=== PATIENT | female | born 1970 | race Caucasian/White ===

== ENCOUNTER 2016-12-06 09:50 | Emergency (ER) | payer OTHER ==
[~2016-12-06] VITALS: Ht 160 cm; Wt 82.6 kg
[~2016-12-06 09:50] MED LIST: ANAPROX DS550 MG PO; ASPIRIN81 MG PO; ASTHMACORT INHALER; ATARAX25 MG PO; BACTRIM DS 8001 TA1 PO; CIPRO250 MG PO; CIPRO500 MG PO; CYCLOBENZAPRINE10 MG PO; DOLOBID500 MG PO; FLAGYL500 MG PO; IBU800 MG PO; IBUPROFEN200 MG PO; IMODIUM2 MG PO; LEVOFLOXACIN500 MG PO; MEDROL DOSEPAK4 MG PO; MOTRIN800 MG; NAPROSYN500 MG PO; NKHM; NORCO 10-325 T1 EACH PO; PEPCID20 MG PO; PREDNISONE50 MG PO; PROVENTIL0.09 MG/AC IH; PYRIDIUM200 M1 PO; ROBAXIN750 MG PO; TRAMADOL HCL50 MG PO; ULTRAM50 MG PO; VICODIN 5/500 505 MG PO; ZANTAC150 MG PO; ZITHROMAX Z PA250 MG PO; ZOFRAN ODT4 MG SL; ZOFRAN4 MG PO
[2016-12-06 10:38] LABS: BASO # 0.1 10*3/uL (0.0-0.1); BASO % 0.5 % (0.0-1.0); EOS # 0.1 10*3/uL (0.0-0.4); EOS % 1.4 % (1.0-4.0); HEMATOCRIT 40.9 % (37.0-47.0); HEMOGLOBIN 13.7 g/dl (12.0-16.0); LYMPH % 30.2 % (27.0-41.0); MEAN CELL VOLUME 83.3 fl (81.0-99.0); MEAN CORPUSCULAR HGB 27.9 pg (27.0-31.0); MEAN CORPUSCULAR HGB CONC 33.5 g/dl (33.0-37.0); MEAN PLATELET VOLUME 10.7 fl (9.6-12.3); MONO # 0.8 10*3/uL (0.1-1.0); MONO % 7.5 % (3.0-9.0); PLATELET COUNT AUTOMATED 278 10*3/uL (130-400); RED BLOOD COUNT 4.91 10*6/uL (4.10-5.10); RED CELL DISTRI WIDTH 14.2 % (0-14.5)
[2016-12-06 10:47] LABS: MAGNESIUM 1.9 mg/dL (1.5-2.1)
[2016-12-06 10:55] LABS: ALBUMIN 3.4 gm/dl (3.1-4.5); ALKALINE PHOSPHATASE 134 U/L (45-117); BILIRUBIN, TOTAL 0.5 mg/dl (0.2-1.0); BUN 10 mg/dl (7-24); CARBON DIOXIDE 23 mmol/L (21-32); CHLORIDE 109 mmol/L (98-107); EST GLOM FILT AFRICAN AMERICAN > 60 ml/min; GLUCOSE 90 mg/dL (65-99); SGOT/AST 36 IU/L (3-35); SGPT/ALT 60 U/L (12-78); SODIUM 140 mmol/L (136-145); TOTAL PROTEIN 7.7 gm/dL (6.4-8.2)
[2016-12-06 10:57] LABS: BILIRUBIN NEGATIVE (NEGATIVE); BLOOD NEGATIVE (NEGATIVE); CLARITY SL CLOUDY (CLEAR); COLOR YELLOW (YELLOW); GLUCOSE NEGATIVE (NEGATIVE); KETONE NEGATIVE (NEGATIVE); LEUKO ESTERASE NEGATIVE (NEGATIVE); NITRITE NEGATIVE (NEGATIVE); PROTEIN TRACE (NEGATIVE); SPECIFIC GRAVITY 1.025 (1.005-1.030); UROBILINOGEN 0.2 E.U./dl (0.2-1.0)
[2016-12-06 11:13] LABS: BACTERIA TRACE; MUCOUS 1+; URINE REFLEX COMMENT NO (NO)
[2016-12-12] MEDS ORDERED: PRILOSEC20 M1 PO (12:30)
[2016-12-12] MEDS ORDERED: Lopressor25 MG PO (13:32)
== END 2016-12-06 14:10 | disposition left against medical advice (07) ==
LOC: ED 09:50
PROVIDERS: Emergency Medicine
DX: R11.2 Nausea with vomiting, unspecified (principal); R19.7 Diarrhea, unspecified; R50.9 Fever, unspecified; F17.200 Nicotine dependence, unspecified, uncomplicated; Z88.6 Allergy status to analgesic agent; Z88.8 Allergy status to other drugs, medicaments and biological substances; Z91.048 Other nonmedicinal substance allergy status

== ENCOUNTER 2018-02-05 16:59 | Emergency (ER) | payer OTHER ==
[~2018-02-05] VITALS: Ht 160 cm; Wt 91.6 kg
[~2018-02-05 16:59] MED LIST changes: +Lopressor25 MG PO; +PRILOSEC20 M1 PO
[2018-02-05 17:39] LABS: BILIRUBIN NEGATIVE (NEGATIVE); BLOOD NEGATIVE (NEGATIVE); CLARITY SL CLOUDY (CLEAR); COLOR YELLOW (YELLOW); GLUCOSE NEGATIVE (NEGATIVE); KETONE NEGATIVE (NEGATIVE); LEUKO ESTERASE NEGATIVE (NEGATIVE); NITRITE NEGATIVE (NEGATIVE); PH 6.5 (5.0-9.0); UROBILINOGEN 0.2 E.U./dl (0.2-1.0)
[2018-02-05 17:52] LABS: RBC 0-2 rbc/hpf (0-2)
[2018-02-05 17:53] LABS: BACTERIA 1+; MUCOUS TRACE
[2018-02-05] MEDS ORDERED: ROBAXIN500 M1 PO (18:16)
[2018-02-05] MEDS ORDERED: DELTASONE20 M1 PO (18:16)
== END 2018-02-05 18:19 | disposition home or self-care (01) ==
LOC: ED 16:59
PROVIDERS: Physician Assistant
DX: M47.896 Other spondylosis, lumbar region (principal); F17.200 Nicotine dependence, unspecified, uncomplicated; Z88.8 Allergy status to other drugs, medicaments and biological substances; Z88.6 Allergy status to analgesic agent; Z91.048 Other nonmedicinal substance allergy status; Z79.899 Other long term (current) drug therapy

== ENCOUNTER → 2018-02-13 | Outpatient (CLI) | payer OTHER ==
[~2018-02-13] MED LIST changes: +DELTASONE20 M1 PO; +ROBAXIN500 M1 PO
== END | disposition home or self-care (01) ==
LOC: RAD 10:43
DX: Z13.820 Encounter for screening for osteoporosis (principal); M85.9 Disorder of bone density and structure, unspecified; N95.9 Unspecified menopausal and perimenopausal disorder

== ENCOUNTER 2018-05-25 16:51 | Emergency (ER) | payer OTHER ==
[~2018-05-25] VITALS: Ht 160 cm; Wt 871.4 kg
[2018-05-25] MEDS ORDERED: Peridex 473 ML473 ML PO (16:59)
[2018-05-25] MEDS ORDERED: ZOFRAN4 MG PO (16:59)
[2018-05-25] MEDS ORDERED: NAPROSYN500 MG PO (16:59)
[2018-05-25] MEDS ORDERED: PENICILLIN VK500 MG PO (16:59)
== END 2018-05-25 17:14 | disposition home or self-care (01) ==
LOC: ED 16:51
DX: K02.9 Dental caries, unspecified (principal); R03.0 Elevated blood-pressure reading, without diagnosis of hypertension; Z88.8 Allergy status to other drugs, medicaments and biological substances; Z88.6 Allergy status to analgesic agent; Z79.899 Other long term (current) drug therapy

== ENCOUNTER 2018-09-02 07:30 | Emergency (ER) | payer SELFPAY ==
[~2018-09-02] VITALS: Wt 84.4 kg
[~2018-09-02 07:30] MED LIST changes: +PENICILLIN VK500 MG PO; +Peridex 473 ML473 ML PO
== END 2018-09-02 08:09 | disposition home or self-care (01) ==
LOC: ED 07:30
DX: J06.9 Acute upper respiratory infection, unspecified (principal); R05 Cough; R11.0 Nausea; R19.7 Diarrhea, unspecified; I10 Essential (primary) hypertension; E66.9 Obesity, unspecified; F17.200 Nicotine dependence, unspecified, uncomplicated; Z98.51 Tubal ligation status; Z79.899 Other long term (current) drug therapy; Z88.8 Allergy status to other drugs, medicaments and biological substances; Z88.6 Allergy status to analgesic agent; Z91.048 Other nonmedicinal substance allergy status

== ENCOUNTER 2019-01-19 07:18 | Emergency (ER) | payer OTHER ==
[~2019-01-19] VITALS: Ht 160 cm; Wt 90.7 kg
--- NOTE | ~2019-01-19 | EKG ---
[place], [place] ELECTROCARDIOGRAM REPORT NAME: ASIM JASMINE UNIT #: [id number] ROOM: DOCTOR: MELANIE DRAFT REPORT BIRTHDATE: [birth year] [facility] Test Date: 2019-01-19 Test Time: 08:27:13 Pat Name: ASIM JASMINE Department: Room: Gender: F Front Desk Clerk: : 1970 Requested By: CHRISTY RED Order Number: [id number] Reading MD: Curt Borrero MD Measurements Intervals [place] Rate: 87 P: 13 [place]: 155 QRS: 35 QRSD: 84 T: 57 QT: 403 QTc: 485 Interpretive Statements Sinus rhythm No previous ECG available for comparison Electronically Signed On 01-20-2019 15:42:46 PST by Curt Borrero MD CM:EKGRPT:ELECTROCARDIOGRAM REPORT [id number] CHRISTY NAVARRO DRAFT REPORT CHRISTY RED MD
[2019-01-19] MEDS ORDERED: ZESTORETIC 10-1 EACH PO (07:42)
[2019-01-19] MEDS ORDERED: ESCITALOPRAM OX10 MG PO (07:43)
[2019-01-19] MEDS ORDERED: BUSPAR5 MG PO (07:43)
[2019-01-19 07:51] LABS: BILIRUBIN NEGATIVE (NEGATIVE); BLOOD TRACE-LYSED (NEGATIVE); CLARITY CLEAR (CLEAR); COLOR YELLOW (YELLOW); GLUCOSE NEGATIVE (NEGATIVE); KETONE NEGATIVE (NEGATIVE); LEUKO ESTERASE NEGATIVE (NEGATIVE); NITRITE NEGATIVE (NEGATIVE); UROBILINOGEN 0.2 E.U./dl (0.2-1.0)
[2019-01-19 08:06] LABS: BACTERIA TRACE; MUCOUS 1+; RBC 0-2 rbc/hpf (0-2); WBC 0-2 wbc/hpf (0-5)
[2019-01-19 08:22] LABS: BASO % 0.4 % (0.0-1.0); EOS # 0.1 10*3/uL (0.0-0.4); HEMATOCRIT 45.1 % (37.0-47.0); LYMPH # 1.1 10*3/uL (1.3-4.4); LYMPH % 10.4 % (27.0-41.0); MEAN CELL VOLUME 86.6 fl (81.0-99.0); MEAN CORPUSCULAR HGB 28.8 pg (27.0-31.0); MEAN CORPUSCULAR HGB CONC 33.3 g/dl (33.0-37.0); MEAN PLATELET VOLUME 11.1 fl (9.6-12.3); MONO # 0.5 10*3/uL (0.1-1.0); MONO % 4.5 % (3.0-9.0); NEUT # 8.4 10*3/uL (2.3-7.9); NEUT % 83.2 % (47.0-73.0); PLATELET COUNT AUTOMATED 243 10*3/uL (130-400); RED BLOOD COUNT 5.21 10*6/uL (4.10-5.10); RED CELL DISTRI WIDTH 14.1 % (0-14.5); WHITE BLOOD COUNT 10.1 10*3/uL (4.8-10.8)
[2019-01-19 09:04] LABS: ALBUMIN 3.2 gm/dl (3.1-4.5); ALKALINE PHOSPHATASE 118 U/L (45-117); BUN 12 mg/dl (7-24); CHLORIDE 107 mmol/L (98-107); CREATININE 0.73 mg/dL (0.55-1.02); LIPASE 128 U/L (73-393); SGOT/AST 18 IU/L (3-35); SGPT/ALT 26 U/L (12-78); SODIUM 142 mmol/L (136-145); TOTAL PROTEIN 7.4 gm/dL (6.4-8.2)
[2019-01-19] MEDS ORDERED: REGLAN10 M1 PO (09:04)
[2019-01-19 09:13] LABS: TROPONIN I < 0.015 ng/ml (<0.045)
[2019-04-28] MEDS ORDERED: MEDROL DOSEPAK4 MG PO (12:00)
[2019-04-28] MEDS ORDERED: ROBAXIN500 M1 PO (12:00)
== END 2019-01-19 09:45 | disposition home or self-care (01) ==
LOC: ED 07:18
PROVIDERS: Emergency Medicine
DX: R11.2 Nausea with vomiting, unspecified (principal); R19.7 Diarrhea, unspecified; R10.9 Unspecified abdominal pain; R06.02 Shortness of breath; E66.9 Obesity, unspecified; F17.200 Nicotine dependence, unspecified, uncomplicated; Z88.8 Allergy status to other drugs, medicaments and biological substances; Z88.6 Allergy status to analgesic agent; Z79.899 Other long term (current) drug therapy

== ENCOUNTER 2019-05-26 09:02 | Emergency (ER) | payer OTHER ==
[~2019-05-26] VITALS: Wt 93.0 kg
[~2019-05-26 09:02] MED LIST changes: +BUSPAR5 MG PO; +ESCITALOPRAM OX10 MG PO; +REGLAN10 M1 PO; +ZESTORETIC 10-1 EACH PO
[2019-05-26] MEDS ORDERED: PREDNISONE50 MG PO (09:37)
[2019-05-26] MEDS ORDERED: NAPROSYN500 MG PO (09:37)
[2019-05-26] MEDS ORDERED: CYCLOBENZAPRINE10 MG PO (09:37)
== END 2019-05-26 09:39 | disposition home or self-care (01) ==
LOC: ED 09:02
DX: M54.5 Low back pain (principal); R20.2 Paresthesia of skin; R20.0 Anesthesia of skin; I10 Essential (primary) hypertension; Z88.8 Allergy status to other drugs, medicaments and biological substances; Z88.6 Allergy status to analgesic agent; Z79.899 Other long term (current) drug therapy; Z90.49 Acquired absence of other specified parts of digestive tract

== ENCOUNTER 2019-06-14 09:52 | Emergency (ER) | payer OTHER ==
[~2019-06-14] VITALS: Ht 160 cm; Wt 94.8 kg
[2019-06-14] MEDS ORDERED: CLINDAMYCIN HC300 MG PO (10:17)
[2019-06-14] MEDS ORDERED: NAPROSYN500 MG PO (10:17)
== END 2019-06-14 10:30 | disposition home or self-care (01) ==
LOC: ED 09:52
DX: K04.7 Periapical abscess without sinus (principal); Z79.899 Other long term (current) drug therapy; Z88.8 Allergy status to other drugs, medicaments and biological substances

== ENCOUNTER → 2019-09-01 | Outpatient (CLI) | payer BC ==
[~2019-09-01] MED LIST changes: +CLINDAMYCIN HC300 MG PO
== END | disposition home or self-care (01) ==
LOC: RAD 10:18
DX: M54.16 Radiculopathy, lumbar region (principal); I10 Essential (primary) hypertension; Z72.0 Tobacco use

== ENCOUNTER 2020-02-07 19:14 | Inpatient (IN) | payer BC ==
[~2020-02-07] VITALS: Ht 160 cm; Wt 95.0 kg
[2020-02-07] VITALS (7 sets, daily range): BP systolic 106–148; BP diastolic 65–90
[2020-02-07 19:41] LABS: HEMATOCRIT 42.2 % (37.0-47.0); MEAN CELL VOLUME 85.9 fl (81.0-99.0); MEAN CORPUSCULAR HGB 28.5 pg (27.0-31.0); MEAN CORPUSCULAR HGB CONC 33.2 g/dl (33.0-37.0); MEAN PLATELET VOLUME 11.2 fl (9.6-12.3); PLATELET COUNT AUTOMATED 279 10*3/uL (130-400); RED BLOOD COUNT 4.91 10*6/uL (4.10-5.10); RED CELL DISTRI WIDTH 14.1 % (0-14.5); WHITE BLOOD COUNT 14.1 10*3/uL (4.8-10.8)
[2020-02-07 19:52] LABS: ACT PARTIAL THROMBO TIME 26.9 SECONDS (20.0-32.1); INTERNATIONAL NORM RATIO 0.9 (2.0-3.5)
[2020-02-07 19:58] LABS: ALBUMIN 3.4 gm/dl (3.1-4.5); ALKALINE PHOSPHATASE 133 U/L (45-117); BUN 9 mg/dl (7-24); CHLORIDE 106 mmol/L (98-107); CREATININE 0.88 mg/dL (0.55-1.02); POTASSIUM 3.4 mmol/L (3.5-5.1); SGOT/AST 21 IU/L (3-35); SGPT/ALT 35 U/L (12-78); SODIUM 138 mmol/L (136-145); TOTAL PROTEIN 7.1 gm/dL (6.4-8.2); TROPONIN I 0.035 ng/ml (<0.045)
[2020-02-07 20:09] LABS: ATYPICAL LYMPHS 2 % (0-0); BASOPHILS 2 % (0-1); TOTAL CELLS COUNTED 100 #CELLS
[2020-02-07 20:10] LABS: PLATELET SUFFICIENCY NORMAL (NORMAL)
--- NOTE | 2020-02-07 20:41 | NUR ---
PT STATES SHE FEELS MORE CALM AND PAIN HAS DECREASED SOME. IN NO ACUTE DISTRESS.
--- NOTE | 2020-02-07 21:27 | NUR ---
PT GIVEN NITRO AT THIS TIME. BP IS 172/79
--- NOTE | 2020-02-07 22:42 | NUR ---
PT RESTING IN BED WITH EYES CLOSED. FAMILY AT BEDSIDE. IN NO ACUTE DISTRESS
--- NOTE | 2020-02-07 22:59 | NUR ---
PT NOW C/O JAW PAIN AND CHEST TIGHTNESS. DR ZAPATA NOTIFIED.
--- NOTE | 2020-02-08 00:05 | NUR ---
NOTIFIED DR CANTU ANSWERING SERVICE OF CONSULT AND REQUESTED A CALL BACK.
--- NOTE | 2020-02-08 00:25 | NUR ---
PATIENT WAS GIVEN ATIVAN IN ER. PATIENT IS ASLEEP AND UNABLE TO GIVE ME UPDATED MED REC. AT BEDSIDE AND STATED HE WOULD BRING IN A LIST OF MEDICATIONS IF SHE WAS UNABLE TO TELL US WHAT SHE TAKES AT HOME. NOTIFIED DR DAMON.
--- NOTE | 2020-02-08 00:25 | NUR ---
A 49, admitted to , under the services of DIANA Melissa DO with a diagnosis of CHEST PAIN. Chief complaint is CHEST PAIN. Patient arrived via stretcher from ER. Monitor applied. Initial assessment completed. Vital signs taken and recorded. DIANA MELISSA DO notified of admission to the unit. Orders received. See assessment for past medical history, medications and allergies. Patient and/or family oriented to unit. [address] visitation policy reviewed. Clothing/patient valuable form completed. DEMETRIA RODRIGUEZ
--- NOTE | 2020-02-08 01:40 | NUR ---
CRITICAL RECIEVED TROPONIN 0.762. DR DAMON NOTIFIED.
--- NOTE | 2020-02-08 01:42 | NUR ---
NO CALL BACK FROM DR HOFF. DR DAMON NOTIFIED. HE STATED LONG THE ANSWERING SERVICE WAS INFORMED THEN I DIDN'T HAVE TO CALL A SECOND TIME. HE STATED IT COULD WAIT UNTIL MORNING.
--- NOTE | 2020-02-08 06:16 | NUR ---
SPOKE WITH DR HOFF REGARDING CONSULT. HE STATED THE PATIENT WOULD BE ONE OF DR AVILA'S PATIENT'S AND TO KEEP HER NPO FOR NOW.
--- NOTE | 2020-02-08 06:21 | NUR ---
NOTIFIED DR DAMON OF CRITICAL TROPONIN OF 0.845. NO NEW ORDERS RECIEVED.
--- NOTE | 2020-02-08 06:25 | NUR ---
PATIENT'S APTT IS 55.1 IN THE THERAPEUTIC RANGE PER POLICY. NO CHANGES AT THIS TIME.
[2020-02-08 06:27] LABS: BASO # 0.1 10*3/uL (0.0-0.1); BASO % 0.5 % (0.0-1.0); EOS # 0.3 10*3/uL (0.0-0.4); EOS % 2.5 % (1.0-4.0); LYMPH # 3.9 10*3/uL (1.3-4.4); LYMPH % 39.7 % (27.0-41.0); MEAN CELL VOLUME 87.9 fl (81.0-99.0); MEAN CORPUSCULAR HGB 28.6 pg (27.0-31.0); MEAN CORPUSCULAR HGB CONC 32.5 g/dl (33.0-37.0); MEAN PLATELET VOLUME 11.9 fl (9.6-12.3); MONO # 0.7 10*3/uL (0.1-1.0); MONO % 6.8 % (3.0-9.0); NEUT % 50.1 % (47.0-73.0); PLATELET COUNT AUTOMATED 254 10*3/uL (130-400); RED BLOOD COUNT 4.55 10*6/uL (4.10-5.10); RED CELL DISTRI WIDTH 14.2 % (0-14.5); WHITE BLOOD COUNT 9.9 10*3/uL (4.8-10.8)
[2020-02-08 06:34] LABS: BUN 12 mg/dl (7-24); CHLORIDE 109 mmol/L (98-107); CHOLESTEROL 148 mg/dL (<200); CREATININE 0.69 mg/dL (0.55-1.02); HDL CHOLESTEROL 26 mg/dl (40-60); LDL CHOLESTEROL 89 mg/dL (9-159); PHOSPHOROUS 3.6 mg/dL (2.5-4.9); SODIUM 140 mmol/L (136-145); TRIGLYCERIDES 165 mg/dl (<150); VLDL CHOLESTEROL 33 mg/dL (6-40)
[2020-02-08 08:00] VITALS: BP 132/73
--- NOTE | 2020-02-08 09:00 | NUR ---
Cnc Maintenance Technician in to talk to patient. Patient states lives at home with . There are no steps in the home. Physician: eladio macias Pharmacy: [facility] health services: none Patient's level of ADLs: INDEPENDENT Patient has working utilities: all working DME: none Follow-up physician's appointment after d/c: will be made by hospitalist nurse director upon discharge Does patient want to access PORTAL?: no Discharge plan discussed with patient, and mom present, she states she lives at home with , she is independent in adls and ambulation, she states she will return home when medically stable but is now being transferred to [facility] for a heart cath, no other needs at this time. HARMEET NELSON
[2020-02-08] MEDS ORDERED: ASPIR LOW81 MG PO (11:09)
[2020-02-08] MEDS ORDERED: LOPRESSOR25 MG PO (11:09)
--- NOTE | 2020-02-08 11:45 | NUR ---
[facility] Discharge instructions reviewed with patient/family. Patient receptive and verbalizes understanding. Follow-up care arranged. Written instructions given to patient/family. ANNITA SHAVER
[2020-02-08 12:00] VITALS: BP 125/78
== END 2020-02-08 11:45 | disposition short-term general hospital (02) | DRG 282 ==
LOC: ED 19:14 → 4E 21:47 → EDHOLD 21:47 → 4E 22:56
PROVIDERS: Emergency Medicine; Student in an Organized Health Care Education/Training Program; ADMIT Family Medicine
DX: I21.4 Non-ST elevation (NSTEMI) myocardial infarction (principal); F41.9 Anxiety disorder, unspecified; F32.9 Major depressive disorder, single episode, unspecified; I10 Essential (primary) hypertension; E66.9 Obesity, unspecified; F17.210 Nicotine dependence, cigarettes, uncomplicated; R73.03 Prediabetes; D72.829 Elevated white blood cell count, unspecified; Z90.49 Acquired absence of other specified parts of digestive tract; Z80.6 Family history of leukemia; Z88.8 Allergy status to other drugs, medicaments and biological substances; Z79.899 Other long term (current) drug therapy; Z79.82 Long term (current) use of aspirin; Z71.6 Tobacco abuse counseling; Z68.37 Body mass index [BMI] 37.0-37.9, adult

== ENCOUNTER 2021-05-14 11:51 | Emergency (ER) | payer BC ==
[~2021-05-14] VITALS: Ht 160 cm; Wt 93.0 kg
[~2021-05-14 11:51] MED LIST changes: +ASPIR LOW81 MG PO; +LOPRESSOR25 MG PO
[2021-05-14 12:13] LABS: BASO % 0.4 % (0.0-1.0); EOS # 0.2 10*3/uL (0.0-0.4); EOS % 1.7 % (1.0-4.0); LYMPH # 3.1 10*3/uL (1.3-4.4); LYMPH % 27.9 % (27.0-41.0); MEAN CELL VOLUME 85.2 fl (81.0-99.0); MEAN CORPUSCULAR HGB 28.3 pg (27.0-31.0); MEAN CORPUSCULAR HGB CONC 33.2 g/dl (33.0-37.0); MEAN PLATELET VOLUME 11.5 fl (9.6-12.3); MONO # 0.7 10*3/uL (0.1-1.0); MONO % 6.2 % (3.0-9.0); PLATELET COUNT AUTOMATED 263 10*3/uL (130-400); RED BLOOD COUNT 4.81 10*6/uL (4.10-5.10); RED CELL DISTRI WIDTH 14.8 % (0-14.5); WHITE BLOOD COUNT 11.1 10*3/uL (4.8-10.8)
[2021-05-14 12:32] LABS: ALBUMIN 3.3 gm/dl (3.1-4.5); ALKALINE PHOSPHATASE 144 U/L (45-117); CHLORIDE 108 mmol/L (98-107); CREATININE 0.73 mg/dL (0.55-1.02); POTASSIUM 3.4 mmol/L (3.5-5.1); SGOT/AST 19 IU/L (3-35); SGPT/ALT 42 U/L (12-78); SODIUM 139 mmol/L (136-145); TOTAL PROTEIN 7.4 gm/dL (6.4-8.2)
[2021-05-14 12:34] LABS: BUN 10 mg/dl (7-24); TROPONIN I < 0.015 ng/ml (<0.045)
== END 2021-05-14 14:36 | disposition left against medical advice (07) ==
LOC: ED 11:51
PROVIDERS: Emergency Medicine
DX: R07.9 Chest pain, unspecified (principal); Z88.8 Allergy status to other drugs, medicaments and biological substances; Z79.899 Other long term (current) drug therapy; Z88.6 Allergy status to analgesic agent; Z90.49 Acquired absence of other specified parts of digestive tract; Z98.890 Other specified postprocedural states

== ENCOUNTER 2021-07-10 12:45 | Emergency (ER) | payer BC ==
[~2021-07-10] VITALS: Wt 95.3 kg
[2021-07-10 14:33] LABS: HEMATOCRIT 41.1 % (37.0-47.0); MEAN CORPUSCULAR HGB 27.8 pg (27.0-31.0); MEAN CORPUSCULAR HGB CONC 32.4 g/dl (33.0-37.0); MEAN PLATELET VOLUME 11.1 fl (9.6-12.3); PLATELET COUNT AUTOMATED 292 10*3/uL (130-400); RED BLOOD COUNT 4.78 10*6/uL (4.10-5.10); RED CELL DISTRI WIDTH 14.3 % (0-14.5); WHITE BLOOD COUNT 9.4 10*3/uL (4.8-10.8)
[2021-07-10 14:54] LABS: BILIRUBIN Negative (Negative); BLOOD Negative (Negative); CLARITY Clear (Clear); COLOR Yellow (Yellow); GLUCOSE Negative (Negative); KETONE Negative (Negative); LEUKO ESTERASE Negative (Negative); NITRITE Negative (Negative); SPECIFIC GRAVITY 1.015 (1.001-1.030)
[2021-07-10 14:55] LABS: ALBUMIN 3.1 gm/dl (3.1-4.5); ALKALINE PHOSPHATASE 136 U/L (45-117); BUN 11 mg/dl (7-24); CHLORIDE 105 mmol/L (98-107); CREATININE 0.62 mg/dL (0.55-1.02); LIPASE 98 U/L (73-393); POTASSIUM 4.1 mmol/L (3.5-5.1); SGOT/AST 19 IU/L (3-35); SGPT/ALT 33 U/L (12-78); SODIUM 138 mmol/L (136-145); TOTAL PROTEIN 7.2 gm/dL (6.4-8.2)
[2021-07-10 14:56] LABS: ATYPICAL LYMPHS 3 % (0-0); BASOPHILS 1 % (0-1); PLATELET SUFFICIENCY NORMAL (NORMAL); TOTAL CELLS COUNTED 100 #CELLS
[2021-07-10 14:57] LABS: TROPONIN I < 0.015 ng/ml (<0.045)
[2021-07-10 15:17] LABS: BACTERIA 2+; RBC 0-2 rbc/hpf (0-2); WBC 0-2 wbc/hpf (0-5)
[2021-07-10] MEDS ORDERED: ZOFRAN4 MG PO (18:08)
[2021-07-10] MEDS ORDERED: MECLIZINE HCL25 M2 PO (18:08)
== END 2021-07-10 18:12 | disposition home or self-care (01) ==
LOC: ED 12:45
PROVIDERS: Physician Assistant
DX: R11.2 Nausea with vomiting, unspecified (principal); Z20.822 Contact with and (suspected) exposure to COVID-19; R19.7 Diarrhea, unspecified; E86.9 Volume depletion, unspecified; F17.200 Nicotine dependence, unspecified, uncomplicated; Z88.8 Allergy status to other drugs, medicaments and biological substances; Z88.6 Allergy status to analgesic agent; Z79.899 Other long term (current) drug therapy

== ENCOUNTER 2022-03-15 18:45 | Emergency (ER) | payer SELFPAY ==
[~2022-03-15 18:45] MED LIST changes: +MECLIZINE HCL25 M2 PO
[2022-03-15] MEDS ORDERED: PENICILLIN VK500 MG PO (19:02)
[2022-03-16] MEDS ORDERED: CLEOCIN HCL150 MG PO (12:04)
[2022-03-16] MEDS ORDERED: KETOROLAC10 MG PO (12:04)
== END 2022-03-15 19:18 | disposition home or self-care (01) ==
LOC: ED 18:45
DX: K04.7 Periapical abscess without sinus (principal); K02.9 Dental caries, unspecified; Z98.51 Tubal ligation status; Z90.49 Acquired absence of other specified parts of digestive tract; Z79.899 Other long term (current) drug therapy; Z79.82 Long term (current) use of aspirin; Z88.8 Allergy status to other drugs, medicaments and biological substances; Z88.6 Allergy status to analgesic agent

== ENCOUNTER 2022-03-16 11:07 | Emergency (ER) | payer SELFPAY ==
[2022-03-16] MEDS ORDERED: KETOROLAC10 MG PO (12:04)
[2022-03-16] MEDS ORDERED: CLEOCIN HCL150 MG PO (12:04)
== END 2022-03-16 12:10 | disposition home or self-care (01) ==
LOC: ED 11:07
DX: K04.7 Periapical abscess without sinus (principal); K02.9 Dental caries, unspecified; F17.200 Nicotine dependence, unspecified, uncomplicated; Z98.890 Other specified postprocedural states; Z79.899 Other long term (current) drug therapy; Z79.82 Long term (current) use of aspirin; Z88.5 Allergy status to narcotic agent; Z88.6 Allergy status to analgesic agent

== ENCOUNTER 2022-10-22 10:09 | Emergency (ER) | payer SELFPAY ==
[~2022-10-22] VITALS: Wt 94.3 kg
[~2022-10-22 10:09] MED LIST changes: +CLEOCIN HCL150 MG PO; +KETOROLAC10 MG PO
[2022-10-22 10:46] LABS: BASO # 0.1 10*3/uL (0.0-0.1); BASO % 0.4 % (0.0-1.0); EOS # 0.2 10*3/uL (0.0-0.4); EOS % 1.9 % (1.0-4.0); HEMATOCRIT 39.8 % (37.0-47.0); LYMPH % 27.3 % (27.0-41.0); MEAN CELL VOLUME 83.3 fl (81.0-99.0); MEAN CORPUSCULAR HGB 28.7 pg (27.0-31.0); MEAN CORPUSCULAR HGB CONC 34.4 g/dl (33.0-37.0); MEAN PLATELET VOLUME 11.5 fl (9.6-12.3); MONO # 0.7 10*3/uL (0.1-1.0); MONO % 5.9 % (3.0-9.0); NEUT # 7.1 10*3/uL (2.3-7.9); NEUT % 64.1 % (47.0-73.0); PLATELET COUNT AUTOMATED 254 10*3/uL (130-400); RED BLOOD COUNT 4.78 10*6/uL (4.10-5.10); RED CELL DISTRI WIDTH 14.3 % (0-14.5); WHITE BLOOD COUNT 11.1 10*3/uL (4.8-10.8)
[2022-10-22 10:58] LABS: ACT PARTIAL THROMBO TIME 27.7 SECONDS (20.0-32.1)
[2022-10-22 11:02] LABS: ALKALINE PHOSPHATASE 129 U/L (45-117); BUN 10 mg/dl (7-24); CHLORIDE 106 mmol/L (98-107); CREATININE 0.65 mg/dL (0.55-1.02); LIPASE 101 U/L (73-393); POTASSIUM 3.6 mmol/L (3.5-5.1); SGPT/ALT 39 U/L (12-78); SODIUM 137 mmol/L (136-145); TOTAL PROTEIN 7.2 gm/dL (6.4-8.2)
== END 2022-10-22 14:15 | disposition left against medical advice (07) ==
LOC: ED 10:09
PROVIDERS: Emergency Medicine
DX: R07.89 Other chest pain (principal); R55 Syncope and collapse; Z79.899 Other long term (current) drug therapy; Z79.82 Long term (current) use of aspirin; Z88.8 Allergy status to other drugs, medicaments and biological substances; Z88.6 Allergy status to analgesic agent

== ENCOUNTER → 2022-12-10 | Outpatient (CLI) | payer BC ==
[2022-12-10 12:42] LABS: BASO # 0.1 10*3/uL (0.0-0.1); BASO % 0.5 % (0.0-1.0); EOS # 0.1 10*3/uL (0.0-0.4); EOS % 0.7 % (1.0-4.0); HEMATOCRIT 44.7 % (37.0-47.0); LYMPH # 1.7 10*3/uL (1.3-4.4); LYMPH % 17.9 % (27.0-41.0); MEAN CORPUSCULAR HGB 28.8 pg (27.0-31.0); MEAN CORPUSCULAR HGB CONC 33.6 g/dl (33.0-37.0); MEAN PLATELET VOLUME 11.7 fl (9.6-12.3); MONO # 0.3 10*3/uL (0.1-1.0); MONO % 3.4 % (3.0-9.0); NEUT # 7.3 10*3/uL (2.3-7.9); NEUT % 76.9 % (47.0-73.0); PLATELET COUNT AUTOMATED 270 10*3/uL (130-400); RED CELL DISTRI WIDTH 14.8 % (0-14.5); RETICULOCYTE % 1.79 % (0.50-2.50); WHITE BLOOD COUNT 9.5 10*3/uL (4.8-10.8)
[2022-12-10 12:43] LABS: BILIRUBIN Negative (Negative); BLOOD Negative (Negative); CLARITY Clear (Clear); COLOR Yellow (Yellow); GLUCOSE Negative (Negative); KETONE Negative (Negative); LEUKO ESTERASE Negative (Negative); NITRITE Negative (Negative); PH 5.5 (4.5-8.0); SPECIFIC GRAVITY 1.015 (1.001-1.030); UROBILINOGEN 0.2 E.U./dl (0.0-1.0)
[2022-12-10 13:02] LABS: ALKALINE PHOSPHATASE 125 U/L (46-116); BUN 9 mg/dl (9-23); CHLORIDE 105 mmol/L (98-107); CHOLESTEROL 152 mg/dL (<200); GAMMA GLUTAMYL TRANSPEPTIDASE 26 U/L (0-73); LDL CHOLESTEROL 90 mg/dL (9-159); POTASSIUM 4.2 mmol/L (3.4-5.1); SGPT/ALT 40 U/L (10-49); THYROID STIM HORMONE (HS) 0.828 uIU/ml (0.550-4.780); TOTAL PROTEIN 7.3 gm/dL (6.0-8.0); TRIGLYCERIDES 160 mg/dl (<150); URIC ACID 5.4 mg/dL (3.1-9.2)
[2022-12-10 13:18] LABS: VITAMIN D, 25-HYDROXY 20.3 ng/mL (30-100)
[2022-12-10 13:56] LABS: BACTERIA TRACE; MUCOUS TRACE
[2022-12-11 14:08] LABS: ANTI-DSDNA ANTIBODIES <1 IU/mL (0-9)
== END | disposition home or self-care (01) ==
LOC: LAB 11:48
PROVIDERS: ATTEND Family Medicine
DX: M47.814 Spondylosis without myelopathy or radiculopathy, thoracic region (principal); M47.816 Spondylosis without myelopathy or radiculopathy, lumbar region; M25.78 Osteophyte, vertebrae; E78.5 Hyperlipidemia, unspecified; E55.9 Vitamin D deficiency, unspecified; R79.89 Other specified abnormal findings of blood chemistry; R53.83 Other fatigue; R74.8 Abnormal levels of other serum enzymes

== ENCOUNTER 2023-05-03 15:38 | Emergency (ER) | payer BC ==
[~2023-05-03] VITALS: Ht 160 cm; Wt 97.5 kg
== END 2023-05-03 17:02 | disposition home or self-care (01) ==
LOC: ED 15:38
DX: S96.912A Strain of unspecified muscle and tendon at ankle and foot level, left foot, initial encounter (principal); F41.9 Anxiety disorder, unspecified; F32.A Depression, unspecified; I10 Essential (primary) hypertension; G43.909 Migraine, unspecified, not intractable, without status migrainosus; Z88.8 Allergy status to other drugs, medicaments and biological substances; Z88.6 Allergy status to analgesic agent; Z88.5 Allergy status to narcotic agent; Z90.49 Acquired absence of other specified parts of digestive tract; Z98.890 Other specified postprocedural states; F17.200 Nicotine dependence, unspecified, uncomplicated; X50.1XXA Overexertion from prolonged static or awkward postures, initial encounter; Y93.89 Activity, other specified; Y92.89 Other specified places as the place of occurrence of the external cause; Y99.8 Other external cause status

== ENCOUNTER → 2023-12-24 | Outpatient (CLI) | payer OTHER ==
[2023-12-24 10:50] LABS: BASO # 0.1 10*3/uL (0.0-0.1); BASO % 0.4 % (0.0-1.0); BILIRUBIN Negative (Negative); BLOOD Negative (Negative); CLARITY Clear (Clear); COLOR Yellow (Yellow); EOS # 0.2 10*3/uL (0.0-0.4); GLUCOSE Negative (Negative); HEMATOCRIT 43.3 % (37.0-47.0); KETONE Trace (Negative); LEUKO ESTERASE Negative (Negative); LYMPH # 3.6 10*3/uL (1.3-4.4); LYMPH % 31.5 % (27.0-41.0); MEAN CELL VOLUME 87.3 fl (81.0-99.0); MEAN CORPUSCULAR HGB 28.8 pg (27.0-31.0); MEAN PLATELET VOLUME 11.3 fl (9.6-12.3); MONO # 0.7 10*3/uL (0.1-1.0); MONO % 5.9 % (3.0-9.0); NEUT # 6.8 10*3/uL (2.3-7.9); NEUT % 59.8 % (47.0-73.0); NITRITE Negative (Negative); PLATELET COUNT AUTOMATED 262 10*3/uL (130-400); RED BLOOD COUNT 4.96 10*6/uL (4.10-5.10); RETICULOCYTE % 1.74 % (0.50-2.50); SPECIFIC GRAVITY >= 1.030 (1.001-1.030); WHITE BLOOD COUNT 11.4 10*3/uL (4.8-10.8)
[2023-12-24 11:55] LABS: CALCIUM OXALATE CRYSTALS Trace; MUCOUS TRACE; RBC 0-2 rbc/hpf (0-2); WBC 0-2 wbc/hpf (0-5)
[2023-12-24 12:01] LABS: ALKALINE PHOSPHATASE 121 U/L (46-116); BUN 13 mg/dl (9-23); CHLORIDE 111 mmol/L (98-107); CHOLESTEROL 125 mg/dL (<200); GAMMA GLUTAMYL TRANSPEPTIDASE 22 U/L (0-73); LDL CHOLESTEROL 77 mg/dL (9-159); POTASSIUM 4.1 mmol/L (3.4-5.1); SGPT/ALT 35 U/L (5-49); T3 UPTAKE 28.4 % (22.4-36.7); THYROXINE (T4) TOTAL 6.6 ug/dl (4.5-10.9); TOTAL PROTEIN 7.3 gm/dL (6.0-8.0); TRIGLYCERIDES 69 mg/dl (<150)
[2023-12-24 12:03] LABS: VITAMIN D, 25-HYDROXY 34.2 ng/mL (30-100)
== END | disposition home or self-care (01) ==
LOC: LAB 10:27
PROVIDERS: ATTEND Family Medicine
DX: E55.9 Vitamin D deficiency, unspecified (principal); R79.89 Other specified abnormal findings of blood chemistry; R74.8 Abnormal levels of other serum enzymes

== ENCOUNTER 2025-03-05 10:15 | Emergency (ER) | payer OTHER ==
[~2025-03-05] VITALS: Ht 160 cm; Wt 93.4 kg
[2025-03-05] MEDS ORDERED: Amoxicillin/Clavulanate Pota 875 MG TAB PO ONE (11:05)
[2025-03-05] MEDS ORDERED: AMOX-CLAV 875-1 EACH PO (11:09)
[2025-03-05] MEDS ORDERED: CIPROFLOXACIN H10 ML OPH (11:09)
== END 2025-03-05 11:41 | disposition home or self-care (01) ==
LOC: ED 10:15
DX: L03.213 Periorbital cellulitis (principal); H10.9 Unspecified conjunctivitis; I10 Essential (primary) hypertension; E78.5 Hyperlipidemia, unspecified; F32.A Depression, unspecified; F41.9 Anxiety disorder, unspecified; Z88.8 Allergy status to other drugs, medicaments and biological substances; Z88.6 Allergy status to analgesic agent; Z79.899 Other long term (current) drug therapy; Z79.82 Long term (current) use of aspirin; Z90.49 Acquired absence of other specified parts of digestive tract; Z98.890 Other specified postprocedural states; Z87.891 Personal history of nicotine dependence

== ENCOUNTER → 2025-05-11 | Outpatient (CLI) | payer OTHER ==
[~2025-05-11] MED LIST changes: +AMOX-CLAV 875-1 EACH PO; +CIPROFLOXACIN H10 ML OPH
== END | disposition home or self-care (01) ==
LOC: RAD 08:40
PROVIDERS: ATTEND Nurse Practitioner
DX: M19.071 Primary osteoarthritis, right ankle and foot (principal); M77.31 Calcaneal spur, right foot; M79.671 Pain in right foot

== ENCOUNTER 2025-09-26 07:03 | Observation (INO) | payer OTHER ==
[2025-09-26] VITALS (7 sets, daily range): BP systolic 136–161; BP diastolic 82–107
[~2025-09-26] VITALS: Ht 160 cm; Wt 92.3 kg
[2025-09-26] MEDS ORDERED: NITROGLYCERIN 1 IN PACKET T ONE (07:20)
[2025-09-26] MEDS ORDERED: ASPIRIN 325 MG ENTERIC COATED PO ONE (07:20)
[2025-09-26] MEDS ORDERED: Ondansetron Hydrochloride 4 MG/2 ML VIAL IV ONE ×2 (07:25→08:25)
[2025-09-26 07:34] LABS: BASO # 0.1 10*3/uL (0.0-0.1); BASO % 0.5 % (0.0-1.0); EOS # 0.2 10*3/uL (0.0-0.4); EOS % 1.5 % (1.0-4.0); MEAN CELL VOLUME 84.9 fl (81.0-99.0); MEAN CORPUSCULAR HGB 28.0 pg (27.0-31.0); MEAN PLATELET VOLUME 10.7 fl (9.6-12.3); MONO # 0.5 10*3/uL (0.1-1.0); MONO % 5.4 % (3.0-9.0); NEUT # 6.0 10*3/uL (2.3-7.9); NEUT % 60.7 % (47.0-73.0); NUCLEATED RED BLOOD CELL 0.0 % (0.0-0.0); NUCLEATED RED BLOOD CELL 0.0 10*3/uL (0.0-0.0); PLATELET COUNT AUTOMATED 277 10*3/uL (130-400); RED CELL DISTRI WIDTH 14.2 % (0-14.5)
[2025-09-26] MEDS ORDERED: ASPIRIN ENTERIC COATED 81 MG TAB PO ONE (07:35)
[2025-09-26 07:58] LABS: BUN 15 mg/dl (9-23); CPK 123 U/L (34-171)
[2025-09-26] MEDS ORDERED: LIPITOR10 MG PO (09:12)
[2025-09-26] MEDS ORDERED: Ondansetron Hydrochloride 4 MG/2 ML VIAL IV PRN (09:30)
[2025-09-26] MEDS ORDERED: ACETAMINOPHEN 325 MG TAB PO PRN (09:30)
[2025-09-26] MEDS ORDERED: busPIRone Hydrochloride 5 MG TAB PO SCH (18:00)
[2025-09-27] VITALS: BP 126/69
[2025-09-27] MEDS ORDERED: Regadenoson 0.4 MG/5 ML SYR IV ONE (05:21)
[2025-09-27 06:03] LABS: BASO # 0.1 10*3/uL (0.0-0.1); BASO % 0.5 % (0.0-1.0); EOS # 0.2 10*3/uL (0.0-0.4); EOS % 1.7 % (1.0-4.0); MEAN CELL VOLUME 83.2 fl (81.0-99.0); MEAN CORPUSCULAR HGB 27.4 pg (27.0-31.0); MEAN PLATELET VOLUME 11.2 fl (9.6-12.3); MONO # 0.5 10*3/uL (0.1-1.0); MONO % 5.9 % (3.0-9.0); NEUT # 4.9 10*3/uL (2.3-7.9); NEUT % 53.2 % (47.0-73.0); NUCLEATED RED BLOOD CELL 0.0 % (0.0-0.0); NUCLEATED RED BLOOD CELL 0.0 10*3/uL (0.0-0.0); PLATELET COUNT AUTOMATED 256 10*3/uL (130-400); RED CELL DISTRI WIDTH 13.9 % (0-14.5)
[2025-09-27 06:39] LABS: BUN 14 mg/dl (9-23); FREE T4 1.00 ng/dl (0.89-1.76); LDL CHOLESTEROL 88 mg/dL (9-159); SGPT/ALT 16 U/L (5-49)
[2025-09-27 08:00] VITALS: BP 152/88
[2025-09-27 08:50] LABS: VITAMIN D, 25-HYDROXY 42.9 ng/mL (30-100)
[2025-09-27] MEDS ORDERED: ESCITALOPRAM OXALATE 10 MG TAB PO SCH (10:00)
[2025-09-27] MEDS ORDERED: ASPIRIN ENTERIC COATED 81 MG TAB PO SCH (10:00)
[2025-09-27] MEDS ORDERED: ATORVASTATIN CALCIUM 10 MG TAB PO SCH (10:00)
[2025-09-27] MEDS ORDERED: ATORVASTATIN CALCIUM 80 MG TAB PO SCH (10:00)
[2025-09-27] MEDS ORDERED: LISINOPRIL 10 MG TAB PO SCH (10:00)
[2025-09-27] MEDS ORDERED: ISOSORBIDE MONONITRATE 30 MG TAB PO SCH (10:00)
[2025-09-27] MEDS ORDERED: ATORVASTATIN CA80 M1 PO (11:34)
[2025-09-27] MEDS ORDERED: IMDUR SA30 MG PO (11:34)
[2025-09-27 12:00] VITALS: BP 139/82
== END 2025-09-27 12:20 | disposition home or self-care (01) ==
LOC: ED 07:03 → EDHOLD 08:49 → 5E 10:13 → 4E 09-27 11:03 → 5E 09-27 12:20
PROVIDERS: Emergency Medicine; Registered Nurse; ADMIT Student in an Organized Health Care Education/Training Program; ATTEND Student in an Organized Health Care Education/Training Program
DX: R07.89 Other chest pain (principal); I10 Essential (primary) hypertension; E78.5 Hyperlipidemia, unspecified; R73.03 Prediabetes; F17.210 Nicotine dependence, cigarettes, uncomplicated; Z79.899 Other long term (current) drug therapy

== ENCOUNTER → 2025-10-30 | Emergency (ER) | payer OTHER ==
[~2025-10-30] VITALS: Ht 160 cm; Wt 86.2 kg
[~2025-10-30] MED LIST changes: +ATORVASTATIN CA80 M1 PO; +IMDUR SA30 MG PO; +IOHEXOL 300 MG/ML 100 ML VIAL IV ONE; +IOHEXOL 350 MG/ML 100 ML VIAL IV ONE; +LIPITOR10 MG PO; +SODIUM CHLORIDE 0.9% 100 ML BAG IV ONE
[2025-10-30 17:05] LABS: BASO # 0.1 10*3/uL (0.0-0.1); BASO % 0.4 % (0.0-1.0); EOS # 0.2 10*3/uL (0.0-0.4); EOS % 1.6 % (1.0-4.0); MEAN CELL VOLUME 83.9 fl (81.0-99.0); MEAN CORPUSCULAR HGB 28.2 pg (27.0-31.0); MEAN PLATELET VOLUME 10.8 fl (9.6-12.3); MONO # 0.7 10*3/uL (0.1-1.0); MONO % 6.1 % (3.0-9.0); NEUT # 6.9 10*3/uL (2.3-7.9); NEUT % 60.1 % (47.0-73.0); NUCLEATED RED BLOOD CELL 0.0 % (0.0-0.0); NUCLEATED RED BLOOD CELL 0.0 10*3/uL (0.0-0.0); PLATELET COUNT AUTOMATED 273 10*3/uL (130-400); RED CELL DISTRI WIDTH 13.9 % (0-14.5)
[2025-10-30 17:24] LABS: BUN 9 mg/dl (9-23)
== END ==
LOC: ED 16:15
PROVIDERS: Internal Medicine
DX: M25.531 Pain in right wrist (principal); M79.631 Pain in right forearm; L53.9 Erythematous condition, unspecified; R20.0 Anesthesia of skin; F17.200 Nicotine dependence, unspecified, uncomplicated; Z88.6 Allergy status to analgesic agent; Z88.8 Allergy status to other drugs, medicaments and biological substances; Z79.899 Other long term (current) drug therapy; Z79.82 Long term (current) use of aspirin; Z98.890 Other specified postprocedural states; Z90.49 Acquired absence of other specified parts of digestive tract

== ENCOUNTER 2025-11-26 10:19 | Emergency (ER) | payer OTHER ==
[~2025-11-26] VITALS: Ht 160 cm; Wt 89.8 kg
[~2025-11-26 10:19] MED LIST changes: -IOHEXOL 300 MG/ML 100 ML VIAL IV ONE; -IOHEXOL 350 MG/ML 100 ML VIAL IV ONE; -SODIUM CHLORIDE 0.9% 100 ML BAG IV ONE
[2025-11-26] MEDS ORDERED: Ondansetron Hydrochloride 4 MG TAB PO ONE (10:50)
[2025-11-26] MEDS ORDERED: Ondansetron4 MG PO (12:06)
== END 2025-11-26 12:12 | disposition home or self-care (01) ==
LOC: ED 10:19
DX: U07.1 COVID-19 (principal); F41.9 Anxiety disorder, unspecified; F32.A Depression, unspecified; I10 Essential (primary) hypertension; G43.909 Migraine, unspecified, not intractable, without status migrainosus; F17.200 Nicotine dependence, unspecified, uncomplicated; Z98.890 Other specified postprocedural states; Z90.49 Acquired absence of other specified parts of digestive tract; Z88.5 Allergy status to narcotic agent; Z88.8 Allergy status to other drugs, medicaments and biological substances

== ENCOUNTER 2025-11-27 14:21 | Emergency (ER) | payer OTHER ==
[~2025-11-27] VITALS: Ht 160 cm; Wt 89.8 kg
[~2025-11-27 14:21] MED LIST changes: +Ondansetron4 MG PO
[2025-11-27] MEDS ORDERED: SODIUM CHLORIDE 0.9% 500 ML IV ONE (14:55)
[2025-11-27 15:23] LABS: BASO # 0.0 10*3/uL (0.0-0.1); BASO % 0.2 % (0.0-1.0); EOS # 0.0 10*3/uL (0.0-0.4); EOS % 0.5 % (1.0-4.0); MEAN CELL VOLUME 85.3 fl (81.0-99.0); MEAN CORPUSCULAR HGB 28.2 pg (27.0-31.0); MEAN PLATELET VOLUME 10.9 fl (9.6-12.3); MONO # 0.5 10*3/uL (0.1-1.0); MONO % 6.3 % (3.0-9.0); NEUT # 5.7 10*3/uL (2.3-7.9); NEUT % 69.9 % (47.0-73.0); NUCLEATED RED BLOOD CELL 0.0 % (0.0-0.0); NUCLEATED RED BLOOD CELL 0.0 10*3/uL (0.0-0.0); PLATELET COUNT AUTOMATED 231 10*3/uL (130-400); RED CELL DISTRI WIDTH 14.3 % (0-14.5)
[2025-11-27 15:41] LABS: BUN 13 mg/dl (9-23)
[2025-11-27] MEDS ORDERED: SODIUM CHLORIDE 0.9% 100 ML BAG IV ONE (15:50)
[2025-11-27] MEDS ORDERED: IOHEXOL 350 MG/ML 100 ML VIAL IV ONE ×2 (15:50→16:18)
[2025-11-27] MEDS ORDERED: SODIUM CHLORIDE 0.9% 100 ML IV ONE (16:18)
== END 2025-11-27 17:54 | disposition left against medical advice (07) ==
LOC: ED 14:21
PROVIDERS: Student in an Organized Health Care Education/Training Program
DX: R07.89 Other chest pain (principal); F41.9 Anxiety disorder, unspecified; F32.A Depression, unspecified; I10 Essential (primary) hypertension; G43.909 Migraine, unspecified, not intractable, without status migrainosus; I25.10 Atherosclerotic heart disease of native coronary artery without angina pectoris; Z90.49 Acquired absence of other specified parts of digestive tract; Z98.890 Other specified postprocedural states; Z88.5 Allergy status to narcotic agent; Z88.8 Allergy status to other drugs, medicaments and biological substances